=== PATIENT | female | born 1985 | race Caucasian/White ===

== ENCOUNTER 2019-06-08 07:49 | Inpatient (IN) | payer OTHER ==
[2019-06-08] MEDS ORDERED: Terbutaline 1 MG/ML SDV SUBCUT PRN (21:56)
[2019-06-08] MEDS ORDERED: Carboprost Tromethamine 250 MCG/1 ML Amp IM PRN (21:56)
[2019-06-08] MEDS ORDERED: Ondansetron 4 MG/2 ML SDV IVPUSH PRN (21:56)
[2019-06-08] MEDS ORDERED: Misoprostol 25 MCG (1/4 of 100 MCG) Tab VAG PRN ×2 (21:56)
[2019-06-08] MEDS ORDERED: Sodium Chloride 0.9% 10 ML Syringe FLUSH PRN (21:56)
[2019-06-08] MEDS ORDERED: Nalbuphine 10 MG/1 ML Vial IVPUSH PRN (21:56)
[2019-06-08] MEDS ORDERED: Sodium Chloride 0.9% 2.5 ML Syringe FLUSH PRN (21:56)
[2019-06-08] MEDS ORDERED: Butorphanol 1 MG/ML SDV IVPUSH PRN (21:56)
[2019-06-08] MEDS ORDERED: Tranexamic Acid 1,000 MG in Sodium Chloride 0.9% 100 ML IV PRN (21:56)
[2019-06-08] MEDS ORDERED: Water For Irrigation,Sterile 1,000 ML Container IRR PRN (21:56)
[2019-06-08] MEDS ORDERED: Lidocaine 1% 50 ML MDV INJECT PRN (21:56)
[2019-06-08] MEDS ORDERED: Misoprostol 200 MCG Tab PO PRN (21:56)
[2019-06-08] MEDS ORDERED: Methylergonovine 0.2 MG/1 ML Amp IM PRN (21:56)
[2019-06-08] MEDS ORDERED: Sodium Chloride 0.9% 10 ML SDV IV PRN (21:56)
[2019-06-08] MEDS ORDERED: Oxytocin/0.9 % Sodium Chloride 30 UNIT/500 ML BAG IV SCH ×2 (22:00)
[2019-06-08 23:19] LABS: BLOOD UREA NITROGEN,BUN 11 mg/dL (7.0-18.0); CARBON DIOXIDE,CO2 23.9 mmol/L (21.0-32.0); CHLORIDE,CL 103 mmol/L (98-107); GLUCOSE RANDOM 98 mg/dL (74-106); POTASSIUM,K 4.2 mmol/L (3.5-5.1); SODIUM,NA 138 mmol/L (136-145)
[2019-06-08] MEDS: Lactated Ringers 1,000 ML IV SCH (23:27)
[2019-06-09] MEDS ORDERED: fentaNYL 100 MCG/2 ML SDV ONE ×2 (01:46→04:39)
[2019-06-09] MEDS ORDERED: Ropivacaine HCl/PF 100 ML ONE (01:46)
[2019-06-09] MEDS: Lactated Ringers 1,000 ML IV SCH ×2 (02:09→05:53)
--- NOTE | 2019-06-09 02:16 | PCM.PREANE ---
Preanesthetic Assessment - Anesthesia/Transfusion/Family Hx Anesthesia History: Prior Anesthesia Without Reaction Family History of Anesthesia Reaction: No - Physical Assessment NPO Status Date: 06/08/19 NPO Status Time: 19:00 Height: 1.57 m Weight: 86.183 kg ASA Class: 1 - Lab Values: Laboratory Last Values WBC 10.67 K/uL (4.0-11.0) 06/08/19 22:32 RBC 3.77 M/uL (4.30-5.90) L 06/08/19 22:32 Hgb 9.1 g/dL (12.0-16.0) L 06/08/19 22:32 Hct 29.2 % (36.0-46.0) L 06/08/19 22:32 MCV 77.5 fL (80.0-98.0) L 06/08/19 22:32 MCH 24.1 pg (27.0-32.0) L 06/08/19 22:32 MCHC 31.2 g/dL (31.0-37.0) 06/08/19 22:32 RDW Std Deviation 44.9 fl (28.0-62.0) 06/08/19 22:32 RDW Coeff of Ileana 16 % (11.0-15.0) H 06/08/19 22:32 Plt Count 370 K/uL (150-400) 06/08/19 22:32 MPV 9.80 fL (7.40-12.00) 06/08/19 22:32 Nucleated RBC % 0.0 /100WBC 06/08/19 22:32 Nucleated RBCs # 0 K/uL 06/08/19 22:32 Sodium 138 mmol/L (136-145) 06/08/19 22:32 Potassium 4.2 mmol/L (3.5-5.1) 06/08/19 22:32 Chloride 103 mmol/L (98-107) 06/08/19 22:32 Carbon Dioxide 23.9 mmol/L (21.0-32.0) 06/08/19 22:32 BUN 11 mg/dL (7.0-18.0) 06/08/19 22:32 Creatinine 0.7 mg/dL (0.6-1.0) 06/08/19 22:32 Est Cr Clr Drug Dosing 92.10 mL/min 06/08/19 22:32 Estimated GFR (MDRD) > 60.0 ml/min 06/08/19 22:32 Glucose 98 mg/dL (74-106) 06/08/19 22:32 Calcium 9.1 mg/dL (8.5-10.1) 06/08/19 22:32 Total Bilirubin 0.2 mg/dL (0.2-1.0) 06/08/19 22:32 AST 21 IU/L (15-37) 06/08/19 22:32 ALT 34 IU/L (14-63) 06/08/19 22:32 Alkaline Phosphatase 152 U/L (46-116) H 06/08/19 22:32 Total Protein 6.4 g/dL (6.4-8.2) 06/08/19 22:32 Albumin 2.7 g/dL (3.4-5.0) L 06/08/19 22:32 Globulin 3.7 g/dL (2.6-4.0) 06/08/19 22:32 Albumin/Globulin Ratio 0.7 (0.9-1.6) L 06/08/19 22:32 Ur Random Creatinine 66.0 mg/dL 06/08/19 22:25 U Random Total Protein 11.0 mg/dL (<11.9) 06/08/19 22:25 Protein/Creatinin Ratio 0.2 06/08/19 22:25 Blood Type A POSITIVE 06/08/19 22:32 Antibody Screen NEGATIVE 06/08/19 22:32 - Allergies Allergies/Adverse Reactions: Allergies Allergy/AdvReac Type Severity Reaction Status Date / Time No Known Allergies Allergy Verified 05/31/19 15:24 - Acknowledgements Anesthesia Type Planned: Epidural Pt an Appropriate Candidate for the Planned Anesthesia: Yes Alternatives and Risks of Anesthesia Discussed w Pt/Guardian: Yes Pt/Guardian Understands and Agrees with Anesthesia Plan: Yes PreAnesthesia Questionnaire - Past Health History Medical/Surgical History: Denies Medical/Surgical History 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: Hematologic History: Reports: Anemia - Past Surgical History HEENT Surgical History: Reports: Other (See Below) Other HEENT Surgeries/Procedures: Marshall teeth extration - SUBSTANCE USE Smoking Status *Q: Never Smoker Second Hand Smoke Exposure: No Recreational Drug Use History: No - HOME MEDS Home Medications: Home Meds Ferrous Sulfate 1 tab PO DAILY 05/31/19 [History] Pnv No.103/Folic/Om3s/Fish Oil [ Gummies] 1 tab PO DAILY 05/31/19 [ History] - CURRENT (IN HOUSE) MEDS Current Meds: Current Medications Butorphanol Tartrate (Stadol) 1 mg IVPUSH Q1H PRN PRN Reason: Pain Carboprost Tromethamine (Hemabate Ds) 250 mcg IM ASDIRECTED PRN PRN Reason: Post Hemorrhage Lactated Ringer's (Ringers, Lactated) 1,000 mls @ 150 mls/hr IV ASDIRECTED NAOMI Last Admin: 06/09/19 02:09 Dose: 150 mls/hr Oxytocin/Sodium Chloride (Oxytocin 30 Unit/500 Ml-Ns) 30 unit in 500 mls @ 500 mls/hr IV TITRATE NAOMI Oxytocin/Sodium Chloride (Oxytocin 30 Unit/500 Ml-Ns) 30 unit in 500 mls @ 2 mls/hr IV TITRATE NAOMI; Protocol Tranexamic Acid 1,000 mg/ (Sodium Chloride) 110 mls @ 660 mls/hr IV ONETIME PRN PRN Reason: Bleeding Lidocaine HCl (Xylocaine 1%) 50 ml INJECT ONETIME PRN PRN Reason: Laceration repair Methylergonovine Maleate (Methergine) 0.2 mg IM ASDIRECTED PRN PRN Reason: Post Hemorrhage Misoprostol (Cytotec) 200 mcg PO ONETIME PRN PRN Reason: Post Hemorrhage Misoprostol (Cytotec) 25 mcg VAG ONETIME PRN PRN Reason: Cervical Ripening Last Admin: 06/08/19 23:20 Dose: 25 mcg Misoprostol (Cytotec) 25 mcg VAG Q4H PRN PRN Reason: Cervical Ripening Nalbuphine HCl (Nubain) 10 mg IVPUSH Q1H PRN PRN Reason: Pain (severe 7-10) Ondansetron HCl (Zofran) 4 mg IVPUSH Q6H PRN PRN Reason: Nausea/Vomiting Sodium Chloride (Saline Flush) 10 ml FLUSH ASDIRECTED PRN PRN Reason: Keep Vein Open Sodium Chloride (Saline Flush) 2.5 ml FLUSH ASDIRECTED PRN PRN Reason: Keep Vein Open Sodium Chloride (Normal Saline) 10 ml IV ASDIRECTED PRN PRN Reason: IV Use Sterile Water (Sterile Water For Irrigation) 1,000 ml IRR ASDIRECTED PRN PRN Reason: delivery Terbutaline Sulfate (Brethine) 0.25 mg SUBCUT ASDIRECTED PRN PRN Reason: Tacysystole Discontinued Medications Fentanyl (Sublimaze) Confirm Administered Dose 100 mcg .ROUTE .STK-MED ONE Stop: 06/09/19 01:47 Ropivacaine (Naropin 0.2%) Confirm Administered Dose 100 mls @ as directed .ROUTE .STK-MED ONE Stop: 06/09/19 01:47
--- NOTE | 2019-06-09 02:19 | PCM.PRNOTE ---
- Free Text/Narrative Note: Anes NOte Patient requests epidural for labor and delivery. Sitting position, sterile technique. Cloraprep scrub to lumbar area. Sterile fenestrated drape applied. Epidural space easily achieved using ALEX technique. ALEX at 4 cm. Cath threaded 5 cm with ease. Cath secured a tskin at 9 cm using sterile clear adhesive dressing. 0150 test 3 cc 1.5% lido with epi negative. 0154 load 10 cc 0.2% ropivicaine with 1 mcg cc fentanyl in slow divided doses. 0200 pump started wtih 90 cc same solution. Rate is 8 cc hr with 6 cc q 20 min prn bolus. Kirsten well. Time with patient [id number]. Rohith Herrera PRESCHOOL ASSISTANT
--- NOTE | 2019-06-09 02:55 | PCM.PRNOTE ---
- Free Text/Narrative Note: Anes NOte Epidural pump beeping occlusion. Epidural cath flushes with ease. Catheter reconnected and infsion resumes. Time with patient [id number] Rohith Herrera ELECTRIC WELDER
[2019-06-09] MEDS ORDERED: Lidocaine 2% with EPINEPHrine 1:100,000 20 ML MDV ONE (04:39)
--- NOTE | 2019-06-09 05:06 | PCM.PRNOTE ---
- Free Text/Narrative Note: Anes Note Patietn reports incomplete analagesia with epidual infusion. Epidural topped up with 100 mcg fentanyl and 4 cc 2% lido with epi. No improvement in analgesia. A new epidraul was place d al level L3-L4 under sterile technique. Chloraprep scrub to lumbar area. Sterile fenestrated drape applied. Epidural space achieved using ALEX technique. ALEX at 4 cm. Cath threaded 5 cm with ease. Cath secured at skin at 10 cm using sterile clear adhesive dressing. 0500 Test dose 3 cc 1.5% lido with epi negative. 0503 Load 4 cc 2% lido with epi. Patient reports excellent analgesia. Epidural infusion restarted. Kirsten well. Time with patient [id number] Rohith Herrera CRNA
--- NOTE | 2019-06-09 08:01 | PCM.DEL ---
L & D Note - General Info Date of Service: 06/09/19 Mother's Due Date: 06/21/19 - Delivery Note Labor: Induced by Oxytocin Cervical Ripening Method: Misoprostil Delivery Outcome: Livebirth Infant Delivery Method: Spontaneous Vaginal Delivery-Single Presentation: Right Occiput Anterior ([place]IS) Nuchal Cord: None Prep: Other Anesthesia Type: Epidural Amniotic Fluid Description: Clear Episiotomy Type: None Laceration: None Placenta: Intact, Spontaneous Cord: 3 Vessels Estimated Blood Loss: 200 Resuscitation Needed: No : Suctioned Score 1 min: 8 Score 5 min: 9 Delivery Comments (Free Text/Narrative):: Induction due to pre-eclampsia, not severe. At delivery Juanito maneuver and suprapubic pressure utilized, no shoulder dystocia, delivery of shoulder with rotation. Liveborn Female weight pending. - General Info Date of Service: 06/09/19 - Patient Data Weight - Most Recent: 86.183 kg I&O - Last 24 Hours: Intake & Output 06/08/19 06/09/19 06/09/19 22:59 06:59 14:59 Intake Total 1000 Balance 1000 Lab Results Last 24 Hours: Laboratory Results - last 24 hr 06/08/19 06/08/19 06/08/19 Range/Units 22:25 22:32 22:32 WBC 10.67 (4.0-11.0) K/uL RBC 3.77 L (4.30-5.90) M/uL Hgb 9.1 L (12.0-16.0) g/dL Hct 29.2 L (36.0-46.0) % MCV 77.5 L (80.0-98.0) fL MCH 24.1 L (27.0-32.0) pg MCHC 31.2 (31.0-37.0) g/dL RDW Std Deviation 44.9 (28.0-62.0) fl RDW Coeff of Ileana 16 H (11.0-15.0) % Plt Count 370 (150-400) K/uL MPV 9.80 (7.40-12.00) fL Nucleated RBC % 0.0 /100WBC Nucleated RBCs # 0 K/uL Sodium (136-145) mmol/L Potassium (3.5-5.1) mmol/L Chloride (98-107) mmol/L Carbon Dioxide (21.0-32.0) mmol/L BUN (7.0-18.0) mg/dL Creatinine (0.6-1.0) mg/dL Est Cr Clr Drug Dosing mL/min Estimated GFR (MDRD) ml/min Glucose (74-106) mg/dL Calcium (8.5-10.1) mg/dL Total Bilirubin (0.2-1.0) mg/dL AST (15-37) IU/L ALT (14-63) IU/L Alkaline Phosphatase (46-116) U/L Total Protein (6.4-8.2) g/dL Albumin (3.4-5.0) g/dL Globulin (2.6-4.0) g/dL Albumin/Globulin Ratio (0.9-1.6) Ur Random Creatinine 66.0 mg/dL U Random Total Protein 11.0 (<11.9) mg/dL Protein/Creatinin Ratio 0.2 Blood Type A POSITIVE Antibody Screen NEGATIVE 06/08/19 Range/Units 22:32 WBC (4.0-11.0) K/uL RBC (4.30-5.90) M/uL Hgb (12.0-16.0) g/dL Hct (36.0-46.0) % MCV (80.0-98.0) fL MCH (27.0-32.0) pg MCHC (31.0-37.0) g/dL RDW Std Deviation (28.0-62.0) fl RDW Coeff of Ileana (11.0-15.0) % Plt Count (150-400) K/uL MPV (7.40-12.00) fL Nucleated RBC % /100WBC Nucleated RBCs # K/uL Sodium 138 (136-145) mmol/L Potassium 4.2 (3.5-5.1) mmol/L Chloride 103 (98-107) mmol/L Carbon Dioxide 23.9 (21.0-32.0) mmol/L BUN 11 (7.0-18.0) mg/dL Creatinine 0.7 (0.6-1.0) mg/dL Est Cr Clr Drug Dosing 92.10 mL/min Estimated GFR (MDRD) > 60.0 ml/min Glucose 98 (74-106) mg/dL Calcium 9.1 (8.5-10.1) mg/dL Total Bilirubin 0.2 (0.2-1.0) mg/dL AST 21 (15-37) IU/L ALT 34 (14-63) IU/L Alkaline Phosphatase 152 H (46-116) U/L Total Protein 6.4 (6.4-8.2) g/dL Albumin 2.7 L (3.4-5.0) g/dL Globulin 3.7 (2.6-4.0) g/dL Albumin/Globulin Ratio 0.7 L (0.9-1.6) Ur Random Creatinine mg/dL U Random Total Protein (<11.9) mg/dL Protein/Creatinin Ratio Blood Type Antibody Screen Med Orders - Current: Current Medications Butorphanol Tartrate (Stadol) 1 mg IVPUSH Q1H PRN PRN Reason: Pain Carboprost Tromethamine (Hemabate Ds) 250 mcg IM ASDIRECTED PRN PRN Reason: Post Hemorrhage Lactated Ringer's (Ringers, Lactated) 1,000 mls @ 150 mls/hr IV ASDIRECTED NAOMI Last Admin: 06/09/19 05:53 Dose: 150 mls/hr Oxytocin/Sodium Chloride (Oxytocin 30 Unit/500 Ml-Ns) 30 unit in 500 mls @ 500 mls/hr IV TITRATE NAOMI Oxytocin/Sodium Chloride (Oxytocin 30 Unit/500 Ml-Ns) 30 unit in 500 mls @ 2 mls/hr IV TITRATE NAOMI; Protocol Last Titration: 06/09/19 06:40 Dose: 4 munits/min, 4 mls/hr Tranexamic Acid 1,000 mg/ (Sodium Chloride) 110 mls @ 660 mls/hr IV ONETIME PRN PRN Reason: Bleeding Lidocaine HCl (Xylocaine 1%) 50 ml INJECT ONETIME PRN PRN Reason: Laceration repair Methylergonovine Maleate (Methergine) 0.2 mg IM ASDIRECTED PRN PRN Reason: Post Hemorrhage Misoprostol (Cytotec) 200 mcg PO ONETIME PRN PRN Reason: Post Hemorrhage Misoprostol (Cytotec) 25 mcg VAG ONETIME PRN PRN Reason: Cervical Ripening Last Admin: 06/08/19 23:20 Dose: 25 mcg Misoprostol (Cytotec) 25 mcg VAG Q4H PRN PRN Reason: Cervical Ripening Nalbuphine HCl (Nubain) 10 mg IVPUSH Q1H PRN PRN Reason: Pain (severe 7-10) Ondansetron HCl (Zofran) 4 mg IVPUSH Q6H PRN PRN Reason: Nausea/Vomiting Sodium Chloride (Saline Flush) 10 ml FLUSH ASDIRECTED PRN PRN Reason: Keep Vein Open Sodium Chloride (Saline Flush) 2.5 ml FLUSH ASDIRECTED PRN PRN Reason: Keep Vein Open Sodium Chloride (Normal Saline) 10 ml IV ASDIRECTED PRN PRN Reason: IV Use Sterile Water (Sterile Water For Irrigation) 1,000 ml IRR ASDIRECTED PRN PRN Reason: delivery Terbutaline Sulfate (Brethine) 0.25 mg SUBCUT ASDIRECTED PRN PRN Reason: Tacysystole Discontinued Medications Fentanyl (Sublimaze) Confirm Administered Dose 100 mcg .ROUTE .STK-MED ONE Stop: 06/09/19 01:47 Fentanyl (Sublimaze) Confirm Administered Dose 100 mcg .ROUTE .STK-MED ONE Stop: 06/09/19 04:40 Ropivacaine (Naropin 0.2%) Confirm Administered Dose 100 mls @ as directed .ROUTE .STK-MED ONE Stop: 06/09/19 01:47 - Problem List & Annotations (1) Vaginal delivery SNOMED Code(s): 844125658 Code(s): O80 - ENCOUNTER FOR FULL-TERM UNCOMPLICATED DELIVERY Status: Acute Current Visit: No - Problem List Review Problem List Initiated/Reviewed/Updated: Yes
[2019-06-09] MEDS ORDERED: Witch Hazel Medicated Pads 40/Jar TOP PRN (08:03)
[2019-06-09] MEDS ORDERED: Benzocaine/Menthol 20%-0.5% Spray 78 GM Cannister TOP PRN (08:03)
[2019-06-09] MEDS ORDERED: oxyCODONE 5 MG Tab PO PRN (08:03)
[2019-06-09] MEDS ORDERED: Docusate Sodium 100 MG Cap PO PRN (08:03)
[2019-06-09] MEDS ORDERED: Tranexamic Acid 1,000 MG in Sodium Chloride 0.9% 100 ML IV PRN (08:03)
[2019-06-09] MEDS ORDERED: Bisacodyl 10 MG Supp RECTAL PRN (08:03)
[2019-06-09] MEDS ORDERED: Ibuprofen 400 MG Tab PO PRN (08:03)
[2019-06-09] MEDS ORDERED: Lanolin 100% Cream 7 GM Tube TOP PRN (08:03)
[2019-06-09] MEDS ORDERED: Acetaminophen 500 MG Tab PO PRN ×2 (08:03)
--- NOTE | 2019-06-09 09:22 | OR ---
SURGEON: Charmaine Forbes M.D. DATE OF PROCEDURE: 06/09/2019 PREOPERATIVE DIAGNOSES: A 38 and 2/7 week intrauterine and preeclampsia. POSTOPERATIVE DIAGNOSIS: A 38 and 2/7 week intrauterine and preeclampsia. PROCEDURE: Cytotec and Pitocin induction of labor, term spontaneous vaginal delivery. PRIMARY SURGEON: Charmaine Forbes M.D. ANESTHESIA: Epidural. ESTIMATED BLOOD LOSS: Less than 200 mL. FINDINGS: Liveborn female, score 8 and 9. Weight is pending at the time of dictation. Placenta was delivered spontaneously, Schultze intact with 3 vessels. Perineum intact. COMPLICATIONS: None known. DISPOSITION: Mother and baby are in LDR in good condition. BRIEF HISTORY: This is a 33-year-old female. She is G2, P1-0-0-1. She presents at 38 and 1/7 weeks' gestation with preeclampsia with blood pressures in the 140/90 range. She denied any headache or visual changes. Her platelets were 370,000. AST 21, ALT 34. Woemmpw-kf-szsaiydzkc ratio was 0.2. She was initially 2 cm dilated, 50% effaced. She received a single dose of Cytotec. She progressed into spontaneous labor. She was 7 cm dilated. She had received an epidural for pain control, and she had artificial rupture of membranes performed. Clear fluid noted. She continued to have category 1 heart tones with early decelerations as the baby's head descended. She progressed to complete. DESCRIPTION OF PROCEDURE: With the patient in dorsal lithotomy position, the patient pushed over a 10- minute time period to a 5+ station. Initially baby was in a right occiput posterior position, was rotated to right occiput anterior position, delivered and then upon delivery of the head, there was not immediate delivery of the shoulder, therefore, Juanito maneuver was utilized as well as suprapubic pressure. The shoulder was gently rotated with a hand behind the scapula and with rotation of the shoulder, the was delivered without difficulty with the remainder of the infant's body delivering. The was handed to the mother in attendance of the nurse attending delivery. The infant was bulb suctioned by nose and mouth. The was a liveborn female, score 8 and 9. Weight is pending at the time of dictation. After the cord had ceased to pulsate, it was doubly clamped and cut. Cord blood was collected for cord ABGs as well as routine cord blood sampling. Pitocin was initiated after delivery of the to assist with delivery. The placenta, which was delivered spontaneously, Schultze intact with 3 vessels. Upon inspection of pelvis and perineum, there were no periurethral, vaginal sidewall, cervical, rectal, or perineal lacerations. EBL was less than 200 mL. There were no complications. Mother and baby are in LDR in good condition. CIRILO ZARATE /[id number]
--- NOTE | 2019-06-09 09:55 | PCM.PRNOTE ---
- Free Text/Narrative Note: Anes Note Epidural cath was not easily removed by RN. I was called to assit with removal of this catheter. I had the patient lean forward as gentle steady traction was applied. The epidural catheter was easily removed complete with tip intact. Time with patient [id number] Rohith GALLEGOS
--- NOTE | 2019-06-09 09:56 | PCM.POSTAN ---
POST ANESTHESIA ASSESSMENT - MENTAL STATUS Mental Status: Alert - RESPIRATORY Respiratory Status: Respiratory Rate WNL - CARDIOVASCULAR CV Status: Pulse Rate WNL - GASTROINTESTINAL GI Status: No Symptoms - POST OP HYDRATION Hydration Status: Adequate & Stable
--- NOTE | 2019-06-09 09:56 | PCM48HPAN ---
Post Anesthesia Note - EVALUATION WITHIN 48HRS OF ANESTHETIC Vital Signs in Normal Range: Yes Patient Participated in Evaluation: Yes Respiratory Function Stable: Yes Airway Patent: Yes Cardiovascular Function Stable: Yes Hydration Status Stable: Yes Pain Control Satisfactory: Yes Nausea and Vomiting Control Satisfactory: Yes Mental Status Recovered: Yes
[2019-06-09] MEDS: Ibuprofen 800 MG Tab PO PRN (14:53)
[2019-06-10] MEDS: Ibuprofen 800 MG Tab PO PRN (04:16)
[2019-06-10 08:23] VITALS: BP 121/87; PULSE 75
[2019-06-10] MEDS: Ferrous Sulfate 325 MG Tab PO SCH ×2 (08:51→09:14)
[2019-06-10] MEDS: [UNRECOGNIZED DRUG - REMARK] PO SCH (09:14)
--- NOTE | 2019-06-10 10:17 | PCM.PNPP ---
- General Info Date of Service: 06/10/19 Functional Status: Reports: Pain Controlled, Tolerating Diet, Ambulating, Urinating - Review of Systems General: Reports: No Symptoms HEENT: Reports: No Symptoms Pulmonary: Reports: No Symptoms Cardiovascular: Reports: No Symptoms Gastrointestinal: Reports: No Symptoms Genitourinary: Reports: No Symptoms Musculoskeletal: Reports: No Symptoms Skin: Reports: No Symptoms Neurological: Reports: No Symptoms Psychiatric: Reports: No Symptoms - General Info Date of Service: 06/10/19 - Patient Data Vital Signs - Most Recent: Last Vital Signs Temp 36.6 C 06/10/19 08:00 Pulse 75 06/10/19 08:00 Resp 16 06/10/19 08:00 BP 121/87 06/10/19 08:00 Pulse Ox 97 06/10/19 08:00 Weight - Most Recent: 86.183 kg Lab Results - Last 24 Hours: Laboratory Results - last 24 hr 06/10/19 Range/Units 05:45 Hgb 8.4 L (12.0-16.0) g/dL Hct 26.9 L (36.0-46.0) % Med Orders - Current: Current Medications Acetaminophen (Tylenol Extra Strength) 500 mg PO Q4H PRN PRN Reason: Pain Acetaminophen (Tylenol Extra Strength) 1,000 mg PO Q4H PRN PRN Reason: Pain Last Admin: 06/09/19 19:03 Dose: 1,000 mg Benzocaine/Menthol (Dermoplast Pain Relief 20%-0.5% [place]) 78 gm TOP ASDIRECTED PRN PRN Reason: Perineal Comfort Measure Bisacodyl (Dulcolax) 10 mg RECTAL ONETIME PRN PRN Reason: Constipation Docusate Sodium (Colace) 100 mg PO BID PRN PRN Reason: Constipation Last Admin: 06/09/19 19:04 Dose: 100 mg Emollient Ointment (Lansinoh Hpa) 0 gm TOP ASDIRECTED PRN PRN Reason: Sore Nipples Ferrous Sulfate (Ferrous Sulfate) 325 mg PO DAILY NAOMI Last Admin: 06/10/19 09:14 Dose: Not Given Tranexamic Acid 1,000 mg/ (Sodium Chloride) 110 mls @ 660 mls/hr IV ONETIME PRN PRN Reason: Bleeding Ibuprofen (Motrin) 400 mg PO Q4H PRN PRN Reason: Pain Ibuprofen (Motrin) 800 mg PO Q6H PRN PRN Reason: Pain Last Admin: 06/10/19 04:16 Dose: 800 mg Oxycodone HCl (Oxycodone) 5 mg PO Q2H PRN PRN Reason: Pain Pnv No.103/Folic/Om3s/Fish Oil [ Gummies] 1 each PO DAILY NAOMI Last Admin: 06/10/19 09:14 Dose: Not Given Witch Radha (Tucks) 1 pad TOP ASDIRECTED PRN PRN Reason: comfort care Discontinued Medications Butorphanol Tartrate (Stadol) 1 mg IVPUSH Q1H PRN PRN Reason: Pain Carboprost Tromethamine (Hemabate Ds) 250 mcg IM ASDIRECTED PRN PRN Reason: Post Hemorrhage Fentanyl (Sublimaze) Confirm Administered Dose 100 mcg .ROUTE .STK-MED ONE Stop: 06/09/19 01:47 Fentanyl (Sublimaze) Confirm Administered Dose 100 mcg .ROUTE .STK-MED ONE Stop: 06/09/19 04:40 Lactated Ringer's (Ringers, Lactated) 1,000 mls @ 150 mls/hr IV ASDIRECTED NAOMI Last Admin: 06/09/19 05:53 Dose: 150 mls/hr Oxytocin/Sodium Chloride (Oxytocin 30 Unit/500 Ml-Ns) 30 unit in 500 mls @ 500 mls/hr IV TITRATE NAOMI Oxytocin/Sodium Chloride (Oxytocin 30 Unit/500 Ml-Ns) 30 unit in 500 mls @ 2 mls/hr IV TITRATE NAOMI; Protocol Last Titration: 06/09/19 07:43 Dose: 999 munits/min, 999 mls/hr Tranexamic Acid 1,000 mg/ (Sodium Chloride) 110 mls @ 660 mls/hr IV ONETIME PRN PRN Reason: Bleeding Ropivacaine (Naropin 0.2%) Confirm Administered Dose 100 mls @ as directed .ROUTE .STK-MED ONE Stop: 06/09/19 01:47 Lidocaine HCl (Xylocaine 1%) 50 ml INJECT ONETIME PRN PRN Reason: Laceration repair Lidocaine/Epinephrine (Xylocaine 2% With Epinephrine 1:100,000) 20 ml .XX .STK- MED ONE Stop: 06/09/19 04:40 Methylergonovine Maleate (Methergine) 0.2 mg IM ASDIRECTED PRN PRN Reason: Post Hemorrhage Misoprostol (Cytotec) 200 mcg PO ONETIME PRN PRN Reason: Post Hemorrhage Misoprostol (Cytotec) 25 mcg VAG ONETIME PRN PRN Reason: Cervical Ripening Last Admin: 06/08/19 23:20 Dose: 25 mcg Misoprostol (Cytotec) 25 mcg VAG Q4H PRN PRN Reason: Cervical Ripening Nalbuphine HCl (Nubain) 10 mg IVPUSH Q1H PRN PRN Reason: Pain (severe 7-10) Ondansetron HCl (Zofran) 4 mg IVPUSH Q6H PRN PRN Reason: Nausea/Vomiting Sodium Chloride (Saline Flush) 10 ml FLUSH ASDIRECTED PRN PRN Reason: Keep Vein Open Sodium Chloride (Saline Flush) 2.5 ml FLUSH ASDIRECTED PRN PRN Reason: Keep Vein Open Sodium Chloride (Normal Saline) 10 ml IV ASDIRECTED PRN PRN Reason: IV Use Sterile Water (Sterile Water For Irrigation) 1,000 ml IRR ASDIRECTED PRN PRN Reason: delivery Terbutaline Sulfate (Brethine) 0.25 mg SUBCUT ASDIRECTED PRN PRN Reason: Tacysystole - Infant Interaction Support Person: - Recovery Exam Fundal Tone: Firm Fundal Level: At Umbilicus Fundal Placement: Midline Lochia Amount: Small Lochia Color: Rubra/Red Perineum Description: Intact, Minimal Bruising/Swelling Episiotomy/Laceration: None Bladder Status: Voiding Urinary Elimination: Voided - Exam General: Alert, Oriented HEENT: Pupils Equal, Pupils Reactive Neck: Supple Lungs: Clear to Auscultation Cardiovascular: Regular Rate, Regular Rhythm GI/Abdominal Exam: Normal Bowel Sounds Extremities: Normal Inspection Neurological: No New Focal Deficit Psy/Mental Status: Alert - Problem List & Annotations (1) Vaginal delivery SNOMED Code(s): 331778447 Code(s): O80 - ENCOUNTER FOR FULL-TERM UNCOMPLICATED DELIVERY Status: Acute Current Visit: No - Problem List Review Problem List Initiated/Reviewed/Updated: Yes - Assessment Assessment:: 33yo s/p PPD1 , Induction of labor of preclampsia , BPs no severe range , Mild Normal lochia - Plan Plan:: Discharge home
== END 2019-06-10 12:30 | disposition home or self-care (01) | DRG 807 ==
LOC: MW.OB 07:49 → OBSVTOIN 06-09 07:49
PROVIDERS: ADMIT Obstetrics & Gynecology; ATTEND Obstetrics & Gynecology
PROC: 10E0XZZ Delivery of Products of Conception, External Approach (ICD-10-PCS; principal; 2019-06-09)
PROC: 3E033VJ Introduction of Other Hormone into Peripheral Vein, Percutaneous Approach (ICD-10-PCS; 2019-06-09)
PROC: 3E0P7VZ Introduction of Hormone into Female Reproductive, Via Natural or Artificial Opening (ICD-10-PCS; 2019-06-09)
PROC: 10907ZC Drainage of Amniotic Fluid, Therapeutic from Products of Conception, Via Natural or Artificial Opening (ICD-10-PCS; 2019-06-09)
PROC: 3E0R3BZ Introduction of Anesthetic Agent into Spinal Canal, Percutaneous Approach (ICD-10-PCS; 2019-06-09)
PROC: 00HU33Z Insertion of Infusion Device into Spinal Canal, Percutaneous Approach (ICD-10-PCS; 2019-06-09)
DX: O14.04 Mild to moderate pre-eclampsia, complicating childbirth (principal); Z37.0 Single live birth; Z3A.38 38 weeks gestation of pregnancy
CPT/HCPCS: 36415; 51702; 59025; 59409; 80053; 82570; 82803; 84156; 85014; 85018; 85027; 86593; 86850; 86900; 86901; A9270-GY; J2590; J2795; J3010; J7120

== ENCOUNTER 2019-12-04 11:53 | Day surgery (SDC) | payer OTHER ==
[2019-12-04] MEDS ORDERED: Lactated Ringers 1,000 ML IV SCH (12:15)
--- NOTE | 2019-12-04 12:50 | PCM.PREANE ---
Preanesthetic Assessment - Anesthesia/Transfusion/Family Hx Anesthesia History: Prior Anesthesia Without Reaction Family History of Anesthesia Reaction: No Transfusion History: No Prior Transfusion(s) Intubation History: Unknown - Review of Systems General: No Symptoms Pulmonary: No Symptoms Cardiovascular: No Symptoms Gastrointestinal: No Symptoms Neurological: No Symptoms Other: Reports: None - Physical Assessment Height: 5 ft 2 in Weight: 79.832 kg ASA Class: 2 Mental Status: Alert & Oriented x3 Airway Class: Mallampati = 1 Dentition: Reports: Normal Dentition Thyro-Mental Finger Breadths: 3 Mouth Opening Finger Breadths: 3 ROM/Head Extension: Full Lungs: Clear to Auscultation, Normal Respiratory Effort Cardiovascular: Regular Rate, Regular Rhythm - Lab Values: Laboratory Last Values Urine HCG, Qual NEGATIVE (NEGATIVE) 12/04/19 12:10 - Allergies Allergies/Adverse Reactions: Allergies Allergy/AdvReac Type Severity Reaction Status Date / Time No Known Allergies Allergy Verified 11/25/19 13:36 - Blood Blood Available: No - Anesthesia Plan Pre-Op Medication Ordered: None - Acknowledgements Anesthesia Type Planned: General Anesthesia Pt an Appropriate Candidate for the Planned Anesthesia: Yes Alternatives and Risks of Anesthesia Discussed w Pt/Guardian: Yes Pt/Guardian Understands and Agrees with Anesthesia Plan: Yes PreAnesthesia Questionnaire - Past Health History Medical/Surgical History: Denies Medical/Surgical History HEENT History: Reports: Other (See Below) Other HEENT History: wears glasses Cardiovascular History: Reports: None Respiratory History: Reports: None Gastrointestinal History: Reports: None Genitourinary History: Reports: None MARKETING MANAGER History: Reports: Polycystic Ovaries, , Other (See Below) (breast feeding) Musculoskeletal History: Reports: None Neurological History: Reports: None Psychiatric History: Reports: None Endocrine/Metabolic History: Reports: Obesity/BMI 30+ (BMI 32.2) Other Endocrine/Metabolic History: prediabetic Hematologic History: Reports: Anemia Immunologic History: Reports: None Oncologic (Cancer) History: Reports: None Dermatologic History: Reports: None - Past Surgical History Head Surgeries/Procedures: Reports: None HEENT Surgical History: Reports: Other (See Below) Other HEENT Surgeries/Procedures: [place] teeth extration Cardiovascular Surgical History: Reports: None Respiratory Surgical History: Reports: None GI Surgical History: Reports: None Female Surgical History: Reports: None Endocrine Surgical History: Reports: None Neurological Surgical History: Reports: None Musculoskeletal Surgical History: Reports: None Oncologic Surgical History: Reports: None - SUBSTANCE USE Smoking Status *Q: Never Smoker - HOME MEDS Home Medications: Home Meds Pnv No.103/Folic/Om3s/Fish Oil [ Gummies] 1 tab PO DAILY 05/31/19 [History] metFORMIN HCl [Glucophage] 200 mg PO DAILY 11/25/19 [History] - CURRENT (IN HOUSE) MEDS Current Meds: Current Medications Lactated Ringer's (Ringers, Lactated) 1,000 mls @ 125 mls/hr IV ASDIRECTED NAOMI
[2019-12-04] MEDS ORDERED: fentaNYL 100 MCG/2 ML SDV ONE (13:19)
[2019-12-04] MEDS ORDERED: Propofol 200 MG/20 ML SDV ONE (13:19)
[2019-12-04] MEDS ORDERED: Midazolam 1 MG/ML 2 ML SDV ONE (13:20)
[2019-12-04] MEDS ORDERED: Ketorolac 30 MG/ML SDV ONE (13:21)
[2019-12-04] MEDS ORDERED: Glycopyrrolate 0.2 MG/ML SDV ONE (13:21)
[2019-12-04] MEDS ORDERED: Lidocaine 2% 5 ML SDV ONE (13:21)
[2019-12-04] MEDS ORDERED: Ondansetron 4 MG/2 ML SDV ONE (13:21)
[2019-12-04] MEDS ORDERED: Ketorolac 15 MG/ML SDV IVPUSH ONE (14:49)
[2019-12-04] MEDS ORDERED: Acetaminophen/oxyCODONE 325-5 MG Tab PO PRN (14:49)
--- NOTE | 2019-12-04 14:55 | PCM.OPNOTE ---
- General Post-Op/Procedure Note Date of Surgery/Procedure: 12/04/19 Operative Procedure(s): Hysteroscopic resection of intrauterine mass with Myosure device Findings: Normal sized retroverted uterus Intrauterine cavity shows about a 3 cm circular pale white mass filling the cavity on the right anterior wall of the uterus Bilateral ostia visualized Pre Op Diagnosis: Abnormal uterine bleeding Post-Op Diagnosis: Abnormal uterine bleeding. Intrauterine mass , probable leiomyoma Anesthesia Technique: General ET Tube Primary Surgeon: Tram Pollard Anesthesia Provider: Rohith Herrera Pathology: Intrauterine mass Endometrial currettings Fluid Replacement, Intraop: 500 EBL in mLs: 10 Complications: None Condition: Good Free Text/Narrative:: Intake & Output 12/03/19 12/04/19 12/04/19 22:59 06:59 14:59 Output Total 50 Balance -50
--- NOTE | 2019-12-04 15:27 | PCM.POSTAN ---
POST ANESTHESIA ASSESSMENT - MENTAL STATUS Mental Status: Alert - VITAL SIGNS Vital Signs: Last Vital Signs Temp 36.6 C 12/04/19 14:50 Pulse 80 12/04/19 15:12 Resp 16 12/04/19 15:12 BP 116/70 12/04/19 15:12 Pulse Ox 93 L 12/04/19 15:12 - RESPIRATORY Respiratory Status: Respiratory Rate WNL - CARDIOVASCULAR CV Status: Pulse Rate WNL - GASTROINTESTINAL GI Status: No Symptoms - POST OP HYDRATION Hydration Status: Adequate & Stable
--- NOTE | 2019-12-04 16:05 | PCM48HPAN ---
Post Anesthesia Note - EVALUATION WITHIN 48HRS OF ANESTHETIC Vital Signs in Normal Range: Yes Patient Participated in Evaluation: Yes Respiratory Function Stable: Yes Airway Patent: Yes Cardiovascular Function Stable: Yes Hydration Status Stable: Yes Pain Control Satisfactory: Yes Nausea and Vomiting Control Satisfactory: Yes Mental Status Recovered: Yes Vital Signs: Last Vital Signs Temp 36.6 C 12/04/19 14:50 Pulse 80 12/04/19 15:12 Resp 16 12/04/19 15:12 BP 116/70 12/04/19 15:12 Pulse Ox 93 L 12/04/19 15:12
[2019-12-04 16:48] VITALS: BP 126/70; PULSE 53
--- NOTE | 2019-12-05 08:57 | OR ---
SURGEON: MARISOL LOW DATE OF PROCEDURE: 12/04/2019 PREOPERATIVE DIAGNOSIS: A 34-year-old, 6 months with abnormal uterine bleeding. POSTOPERATIVE DIAGNOSIS: Intracavitary suspected fibroid, about 5 cm. PROCEDURE: Hysteroscopic resection of intrauterine mass. ANESTHESIA: General. ESTIMATED BLOOD LOSS: 10 mL. IV FLUIDS: 2000. FLUID DEFICIT: 400 of normal saline. SPECIMEN: Intrauterine cavity mass. COMPLICATION: None. FINDINGS: Examination under anesthesia showed a normal-sized retroverted uterus. Hysteroscopy showed one pedunculated, about 3 cm, white pale mass occupying the endometrial cavity towards the fundus, more on the right side. Bilateral ostia were visualized after procedure. INDICATION AND CONSENT: She was a 34-year-old patient who was complaining of some intermenstrual bleeding continuously after having a baby 6 months ago. She had a saline ultrasound done that showed an intracavitary mass. As a result, she was scheduled for hysteroscopic resection of the mass. She was explained the risks, benefits, and alternatives, and she understood the risks and procedure which included uterine perforation, fluid overload, and a very rare risk of . She decided to proceed and signed the consent. DESCRIPTION OF PROCEDURE: She was taken to the operating room where general anesthesia was administered without any difficulty. She was placed in the dorsal lithotomy position with the Marlo stirrups. Examination under anesthesia revealed a normal-sized retroverted uterus. The patient was prepared and draped in the normal sterile fashion. A bivalve speculum was used to expose the cervix. The Allis was used to grasp the anterior lip of the cervix and the uterus was dilated to accommodate the 10 mm hysteroscope, 0 degree. Upon visualization, the pale mass was seen in the right fundal part of the uterus. The MyoSure was then attached and the mass was then shaved off with the MyoSure device. After shaving off the mass, the hysteroscope was withdrawn and a simple endometrial curettage was done. The patient tolerated the procedure well. All instrument and pad counts were correct x2, and the patient will be taken to the recovery room in stable condition. ALBA ZARATE /[id number]
== END 2019-12-04 16:15 | disposition home or self-care (01) ==
LOC: MW.SDS 11:53
PROVIDERS: ATTEND Obstetrics & Gynecology
DX: N93.9 Abnormal uterine and vaginal bleeding, unspecified (principal); N85.8 Other specified noninflammatory disorders of uterus; E66.9 Obesity, unspecified; D64.9 Anemia, unspecified; Z79.899 Other long term (current) drug therapy; Z68.32 Body mass index [BMI] 32.0-32.9, adult
CPT/HCPCS: 00952; 36415; 81025; 85027; 88305; J1885; J2001; J2250; J2405; J2704; J3010; J3490; J7120; U0002

== ENCOUNTER 2024-01-04 12:05 | Inpatient (IN) | payer OTHER ==
[2024-01-04] MEDS ORDERED: Sodium Chloride 0.9% 10 ML Syringe FLUSH PRN (12:11)
[2024-01-04] MEDS ORDERED: Carboprost Tromethamine 250 MCG/1 mL Vial IM PRN (12:11)
[2024-01-04] MEDS ORDERED: Sodium Chloride 0.9% 2.5 ML Syringe FLUSH PRN (12:11)
[2024-01-04] MEDS ORDERED: Sodium Chloride 0.9% 20 ML SDV IV PRN (12:11)
[2024-01-04] MEDS ORDERED: Methylergonovine 0.2 MG/1 ML Amp IM PRN (12:11)
[2024-01-04] MEDS ORDERED: Lidocaine 1% 50 ML MDV INJECT PRN (12:11)
[2024-01-04] MEDS ORDERED: Water For Irrigation,Sterile 1,000 ML Container IRR PRN (12:11)
[2024-01-04] MEDS ORDERED: Butorphanol 2 MG/ML SDV IVPUSH PRN (12:11)
[2024-01-04] MEDS ORDERED: Tranexamic Acid IN NACL,ISO-OS 1,000 MG in Premix Bag 1 BAG IV PRN (12:11)
[2024-01-04] MEDS ORDERED: Ondansetron 4 MG/2 ML SDV IVPUSH PRN (12:11)
[2024-01-04] MEDS ORDERED: Terbutaline 1 MG/ML SDV SUBCUT PRN (12:11)
[2024-01-04] MEDS ORDERED: Misoprostol 200 MCG Tab PO PRN (12:11)
[2024-01-04] MEDS ORDERED: Oxytocin/0.9 % Sodium Chloride 30 UNIT/500 ML BAG IV SCH (12:15)
[2024-01-04] MEDS: Lactated Ringers 1,000 ML IV SCH (12:20)
[2024-01-04 12:43] LABS: HEMATOCRIT 34.3 % (37.0-47.0); HEMOGLOBIN 11.2 g/dL (12.0-16.0); MEAN CORPUSCULAR HEMOGLOBIN 26.9 pg (28.0-32.0); MEAN CORPUSCULAR HGB CONC 32.7 g/dL (32.0-36.0); MEAN CORPUSCULAR VOLUME 82.3 fL (83.0-99.0); MEAN PLATELET VOLUME 10.4 fL (9.4-12.3); PLATELET COUNT,PLT 294 K/uL (150-400); RED BLOOD CELL COUNT 4.17 M/uL (4.10-5.30)
[2024-01-04] MEDS: Oxytocin/0.9 % Sodium Chloride 30 UNIT/500 ML BAG IV SCH (12:51)
[2024-01-04] MEDS ORDERED: Bupivacaine 0.5% 10 ML SDV ONE (17:28)
[2024-01-04] MEDS ORDERED: Phenylephrine HCl In 0.9% NaCl 1 MG/10 ML Syringe ONE (17:28)
[2024-01-04] MEDS ORDERED: Phenylephrine HCl In 0.9% NaCl 1 MG/10 ML Syringe IVPUSH PRN (17:51)
[2024-01-04] MEDS ORDERED: ePHEDrine 50 MG/ML SDV IM PRN (17:51)
[2024-01-04] MEDS ORDERED: ePHEDrine 50 MG/ML SDV IVPUSH PRN (17:51)
[2024-01-04] MEDS: Ropivacaine HCl/PF 200 ML ONE (17:52)
[2024-01-04] MEDS ORDERED: Ropivacaine HCl/PF 400 MG in Premix Bag 1 BAG EPIDUR SCH (18:00)
[2024-01-05] MEDS ORDERED: Witch Hazel Medicated Pads 40/Jar TOP ONE ×2 (04:12)
[2024-01-05] MEDS ORDERED: Benzocaine/Menthol 20%-0.5% Spray 78 GM Cannister ONE ×2 (04:12)
[2024-01-05] MEDS ORDERED: Ibuprofen 400 MG Tab ONE ×3 (04:12→04:26)
[2024-01-05] MEDS ORDERED: Hydrocortisone 2.5% Crm 30 GM Tube TOP PRN (14:22)
[2024-01-05] MEDS ORDERED: Ibuprofen 400 MG Tab PO PRN (14:24)
[2024-01-05] MEDS ORDERED: Acetaminophen 500 MG Tab PO PRN ×3 (14:24→17:47)
[2024-01-05] MEDS ORDERED: Ibuprofen 800 MG Tab PO PRN (14:24)
[2024-01-05] MEDS ORDERED: Witch Hazel Medicated Pads 40/Jar TOP PRN (17:47)
[2024-01-05] MEDS ORDERED: Benzocaine/Menthol 20%-0.5% Spray 78 GM Cannister TOP PRN (17:47)
[2024-01-05] MEDS ORDERED: Docusate Sodium 100 MG Cap PO SCH (21:00)
[2024-01-06 06:08] LABS: HEMATOCRIT 30.3 % (37.0-47.0); HEMOGLOBIN 9.8 g/dL (12.0-16.0)
[2024-01-06] MEDS: Ibuprofen 800 MG Tab ONE (08:25)
[2024-01-06] MEDS: Docusate Sodium 100 MG Cap PO PRN (08:26)
[2024-01-06] MEDS: Lanolin 100% Cream 7 GM Tube TOP PRN (15:46)
[2024-01-06 22:38] LABS: PH,UMBILICAL ARTERIAL 7.322 (7.18-7.38); PH,UMBILICAL VENOUS 7.206 (7.25-7.45)
[2024-01-06] MEDS: Ibuprofen 800 MG Tab PO PRN (23:16)
[2024-01-07 10:26] VITALS: BP 142/91; PULSE 74
== END 2024-01-07 13:26 | disposition home or self-care (01) | DRG 807 ==
LOC: MW.OB 12:05 → OBSVTOIN 01-05 00:43 → MW.OB 01-06 02:51
PROVIDERS: ADMIT Obstetrics & Gynecology; ATTEND Obstetrics & Gynecology
PROC: 10E0XZZ Delivery of Products of Conception, External Approach (ICD-10-PCS; principal; 2024-01-05)
PROC: 10907ZC Drainage of Amniotic Fluid, Therapeutic from Products of Conception, Via Natural or Artificial Opening (ICD-10-PCS; 2024-01-05)
PROC: 3E033VJ Introduction of Other Hormone into Peripheral Vein, Percutaneous Approach (ICD-10-PCS; 2024-01-05)
PROC: 3E0R3BZ Introduction of Anesthetic Agent into Spinal Canal, Percutaneous Approach (ICD-10-PCS; 2024-01-05)
PROC: 00HU33Z Insertion of Infusion Device into Spinal Canal, Percutaneous Approach (ICD-10-PCS; 2024-01-05)
DX: O13.4 Gestational [pregnancy-induced] hypertension without significant proteinuria, complicating childbirth (principal); Z37.0 Single live birth; O99.02 Anemia complicating childbirth; D64.9 Anemia, unspecified; Z3A.39 39 weeks gestation of pregnancy
CPT/HCPCS: 36415; 51702; 59025; 59409; 82803; 85014; 85018; 85027; 86592; 86850; 86900; 86901; A9270-GY; J0665; J2371; J2590; J2795; J7120